=== PATIENT | female | born 1985 | race Caucasian/White ===

== ENCOUNTER → 2016-07-25 | Outpatient (CLI) | payer OTHER | LOC: MW.CHOBGYN 16:21 | PROVIDERS: ATTEND Nurse Practitioner Women's Health | DX: A49.9 Bacterial infection, unspecified (principal) | CPT/HCPCS: 87480; 87510; 87660 ==

== ENCOUNTER → 2016-09-27 | Outpatient (CLI) | payer OTHER ==
--- NOTE | 2016-10-24 10:52 | BHI ---
SERVICE DATE: PATIENT #: [id number] #: NOT DICTATED IDENTIFICATION: She is a 31-year-old female, who is here today for evaluation. She is seen with her . She is referred to me by Sayda Nuno. CURRENT MEDICATIONS: None related to Mental Health. She does take some vaginal cream for bacterial vaginosis. ALLERGIES: She has allergies to penicillin. CHIEF COMPLAINT: "My anxiety." HISTORY OF PRESENT ILLNESS: Michelle states that about a year and half ago she quit smoking and that is when most of this started. She also developed some bacterial vaginosis at that time, and since then for the last year and a half, she has been struggling with trying to get rid of it. They have tried multitude of things, she is currently on boric acid, and when that finishes, she goes back for a different round of something but she finds herself getting very irritable especially in the evenings. She is on edge and takes it out when she gets home, she is crabby with the kids, crabby with her . She states she has always had anxiety. She said throughout most of her life she has had anxiety. Symptoms she significantly endorses are fears of speaking in public, persistent ideas, she cannot get out of her mind, recurrent thoughts, worries, worries about misfortune, she has angers, emotional problems. She denies suicidal or homicidal ideation. Her PHQ-9 score is 11. MARIELLA-7 score is 19. Stressor she has right now, she developed bacterial vaginosis about a year and half ago and has not been able to get rid of it. Children, they have a blended family. He has 2 children, she has 2 children, and trying to blend them can be very stressful. 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 Then relationship, she said she ends up blown up but , she has issues with trust, and she said that has spilled over from her previous marriage when her spouse cheated on her. She is not taking any medications for this. She has never taken medications but she felt that it might be a good thing to get in and try medications and see if that would be helpful to her. PAST PSYCHIATRIC HISTORY: She has never seen anyone in mental health. She has never been hospitalized. Never had a suicide attempt. Never taken any medications. As far as sleep goes, she sleeps okay. She gets about 7 hours of sleep at night. SOCIAL HISTORY: She grew up with her dad, sister, step mom, and other siblings. Mom apparently has a lot of mental health issues and has drug and alcohol issues, so she has not had a whole lot of contact with her. She was the first time for 8 years, she had 2 children with him; a 12-year-old daughter and a 10-year-old son. She has been to her present , they have been together for 9 years and he has 2 children. She works as an insurance producer for a company that does [employer]. She has never been in the service. FAMILY HISTORY: Mom has bipolar, she is taking Seroquel and Risperdal, and she is not sure what else. Sister has had depression and anxiety and she takes Pristiq with good results. She has a nephew who has bipolar, OCD, and ADHD who has tried Seroquel and Risperdal as well. CHEMICAL USAGE HISTORY: She uses very little alcohol maybe once a month, a couple of drinks or less than that. PAST SURGICAL HISTORY: No surgeries in her past. PRIMARY CARE PROVIDER: Sayda Nuno, nurse practitioner. REVIEW OF SYSTEMS: GENERAL: She says she is healthy, except for the bacterial vaginosis that has been the one thing that has been troubling her. ALLERGY AND IMMUNE: Negative. CARDIOVASCULAR: Negative, no symptoms. RESPIRATORY: Negative, no symptoms. EARS NOSE AND THROAT: Negative, no symptoms. EYES: Negative, no symptoms. GASTROINTESTINAL: Negative, no symptoms. MUSCULOSKELETAL: Negative, no symptoms. NEUROLOGIC: Negative, no symptoms. ENDOCRINE: Negative, no symptoms. INTEGUMENTARY: Negative, no symptoms. HEMATOLOGY: Negative no symptoms. She denies any recent illnesses or fevers or unexplained weight loss. Her only issue at this time is the bacterial vaginosis. PHYSICAL EXAMINATION: VITAL SIGNS: Blood pressure is 123/84, heart rate is 75, respirations 16, height 71 inches, and weight 178.6 pounds. GENERAL APPEARANCE: She is very well groomed, very pleasant lady who appears her stated age. Good rapport is seen between her and . Muscle tone and strength appear to be equal bilaterally. Gait and station are normal. PSYCH: Speech is clear and appropriate. Coherent. Thought processes are logical and linear. I do not see any pressured speech or tangential speech. Associations are intact. She denies suicidal or homicidal ideation. She denies hallucinations and I do not see any delusions. She states that her mood is anxious. Her affect is mildly anxious. Insight and judgment appear to be pretty good. Eye contact is good. MENTAL STATUS EXAM: She is alert and oriented x3. Recent and remote memory appear intact. Attention span is good. Language good. Fund of knowledge adequate for developmental age. DIAGNOSES: [place] I: Anxiety, F41.8 ;mood disorder F39. [place] II: No diagnosis. [place] III: Bacterial vaginosis. [place] IV: Stressors; work, children, relationship with . [place] V: Current Global Assessment of Functioning score 66. TREATMENT PLAN: First of all, we are going to try something that has worked well for her sister. We are going to start with Pristiq 50 mg a day. I did discuss side effects. I also discussed with her if she would feel worse with this she needs to stop it and call me right away. If it is on a weekend or after hours and she feels suicidal, she is to use the emergency room. I would also if possible like her to get the medications that her mom takes, but she states that it might not be possible because she said she really does not have a good relationship with mom and it usually ends up to be yelling. She will start the Pristiq, and I also discussed with her the genetic testing. So, if we try a couple of medications and do not have any luck, we might consider doing that. I will see her back in 2 weeks. /[id number]
== END ==
LOC: MW.CHOBGYN 11:26
PROVIDERS: ATTEND Nurse Practitioner Women's Health
DX: L29.8 Other pruritus (principal)
CPT/HCPCS: 87480; 87510; 87660